=== PATIENT | male | born 1965 | race Caucasian/White ===

== ENCOUNTER 2025-01-30 14:30 | Emergency (ER) | payer BC ==
[2025-01-30] MEDS: Bacitracin/Neomycin/Polymyxin B Oint 28.4 GM Tube TOP ONE (15:24)
[2025-01-30 15:30] VITALS: BP 115/80; PULSE 80
[2025-01-30] MEDS ORDERED: Mupirocin Oint 22 GM Tube TOP SCH ×2 (15:30→21:00)
== END 2025-01-30 15:37 | disposition home or self-care (01) ==
LOC: KA.ED 14:30
DX: S61.312A Laceration without foreign body of right middle finger with damage to nail, initial encounter (principal); I10 Essential (primary) hypertension; Z79.82 Long term (current) use of aspirin; Z79.899 Other long term (current) drug therapy; W26.8XXA Contact with other sharp object(s), not elsewhere classified, initial encounter; Y93.89 Activity, other specified
CPT/HCPCS: 99282; 99283